=== PATIENT | male | born 1950 | race Caucasian/White ===

== ENCOUNTER 2017-08-18 16:48 | Inpatient (IN) | payer MEDICARE ==
[~2017-08-18] VITALS: Ht 175.3 cm; Wt 93.4 kg
[2017-08-18 17:44] LABS: APPEARANCE,URINE Clear (CLEAR); BILIRUBIN,URINE Negative (NEGATIVE); COLOR,URINE Yellow (YELLOW); GLUCOSE, URINE (UA) Negative (NEGATIVE); KETONES,URINE Negative (NEGATIVE); LEUKOCYTE ESTERASE ,URINE Negative (NEGATIVE); NITRATE,URINE Negative (NEGATIVE); OCCULT BLOOD,URINE Negative (NEGATIVE); PH,URINE 7.5 (5.0-8.0); PROTEIN,URINE Negative (NEGATIVE); UROBILINOGEN,URINE 0.2 mg/dL (0.2-1.0)
[2017-08-18] MEDS ORDERED: MORPHINE SULFATE 4 MG/1ML SYG ONE ×2 (18:46→23:07)
[2017-08-18] MEDS ORDERED: ONDANSETRON HCL 4 MG/2 ML VIAL ONE (18:46)
[2017-08-18 18:59] LABS: BASOPHILS % (AUTO) 0.6 % (0.0-5.0); EOSINOPHILS % (AUTO) 0.3 % (0.0-8.0); MEAN CORPUSCULAR HEMOGLOBIN 37.5 pg (27.0-33.0); MEAN CORPUSCULAR VOLUME 101.4 fL (79-99); MONOCYTES % (AUTO) 5.4 % (3.0-13.0); NEUTROPHILS % (AUTO) 79.7 % (40.0-77.0); PLATELET COUNT (AUTO) 191 K/uL (130-400); RED BLOOD CELL COUNT(AUTO) 4.05 MIL/uL (4.50-6.20); RED CELL DISTRIBUTION WIDTH 13.2 % (11.0-15.5); WHITE BLOOD COUNT (AUTO) 7.2 K/uL (4.8-10.8)
[2017-08-18 19:08] LABS: CREATININE 0.9 mg/dL (0.5-1.5); POTASSIUM 3.6 mmol/L (3.5-5.1)
[2017-08-18 19:13] LABS: ALBUMIN 3.7 g/dL (3.5-5.0); BILIRUBIN,TOTAL 0.5 mg/dL (0.2-1.0); TOTAL PROTEIN, SERUM 7.8 g/dL (6.0-8.3)
[2017-08-18 20:04] LABS: ERYTHROCYTE SEDIMENTATION RATE 17 MM/HR (0-15)
[2017-08-18] MEDS ORDERED: ACETAMINOPHEN 325 MG TAB PO PRN (22:15)
[2017-08-18] MEDS ORDERED: METHYLPREDNISOLONE SOD SUCC 125MG/2ML VIAL IV SCH (22:15)
[2017-08-18] MEDS ORDERED: MORPHINE SULFATE 2 MG/ML 1ML SYG IV PRN (22:15)
[2017-08-18] MEDS ORDERED: ONDANSETRON HCL 4 MG/2 ML VIAL IV PRN (22:15)
[2017-08-18] MEDS ORDERED: HYDRALAZINE HCL 20 MG/ML VIAL IV PRN (22:15)
[2017-08-18 23:41] VITALS: BP 158/73
[2017-08-19] MEDS: SODIUM CHLORIDE 0.9% 1000ML 1,000 ML IV SCH ×2 (01:18→17:37)
[2017-08-19] MEDS ORDERED: MORPHINE SULFATE 4 MG/1ML SYG ONE ×5 (02:36→22:17)
[2017-08-19 04:00] VITALS: BP 159/88
[2017-08-19 07:00] VITALS: BP 171/89
[2017-08-19] MEDS: FAMOTIDINE 20MG TAB 20 MG TAB PO SCH ×2 (10:38→20:15)
[2017-08-19] MEDS: DEXAMETHASONE 4 MG TAB PO SCH (10:38)
[2017-08-19 12:00] VITALS: BP 168/99
[2017-08-19 16:00] VITALS: BP 156/76
[2017-08-19 20:00] VITALS: BP 172/89
[2017-08-19] MEDS ORDERED: TIZA2TAB4 PO (20:00)
[2017-08-19] MEDS ORDERED: TYL3 PO (20:00)
[2017-08-19] MEDS ORDERED: LISI30TA4 PO (20:01)
[2017-08-19] MEDS: ZOLPIDEM TARTRATE 5 MG TAB PO PRN ×2 (21:31→21:46)
[2017-08-19] MEDS ORDERED: HYDR25TA PO (22:49)
[2017-08-19 23:17] VITALS: BP 146/87
[2017-08-20] MEDS ORDERED: MORPHINE SULFATE 4 MG/1ML SYG ONE ×2 (03:54→08:52)
[2017-08-20 04:00] VITALS: BP 157/87
[2017-08-20] MEDS: SODIUM CHLORIDE 0.9% 1000ML 1,000 ML IV SCH (06:05)
[2017-08-20 07:00] VITALS: BP 153/78
[2017-08-20] MEDS: DEXAMETHASONE 4 MG TAB PO SCH (08:42)
[2017-08-20] MEDS: FAMOTIDINE 20MG TAB 20 MG TAB PO SCH (08:47)
[2017-08-20] MEDS ORDERED: ACETAMINOPHEN-CODEINE 300/30MG TAB PO PRN (11:00)
[2017-08-20] MEDS ORDERED: METHYLPREDNISOLONE SOD SUCC 125MG/2ML VIAL IVP SCH (11:00)
[2017-08-20 11:40] VITALS: BP 110/50
[2017-08-20] MEDS ORDERED: FAMO20TA8 PO (14:14)
[2017-08-20] MEDS ORDERED: DEXA4 PO (14:14)
[2017-08-20] MEDS ORDERED: PREG75 PO (14:14)
[2017-08-20] MEDS ORDERED: MORPHINE SULFATE 2 MG/ML 1ML SYG IV PRN (14:15)
[2017-08-20] MEDS ORDERED: PREGABALIN 75 MG CAPSULE PO SCH (21:00)
== END 2017-08-20 15:55 | disposition home or self-care (01) | DRG 552 ==
LOC: EDH 16:48 → EDHIP 19:03 → 3AH 23:42
PROVIDERS: ADMIT Family Medicine; ATTEND Family Medicine
DX: M48.061 Spinal stenosis, lumbar region without neurogenic claudication (principal); I10 Essential (primary) hypertension; M47.26 Other spondylosis with radiculopathy, lumbar region
CPT/HCPCS: 36415; 72148; 80053; 81003; 85025; 85651; J0360; J2270; J2405; J2930; J7030; J8540

== ENCOUNTER → 2021-11-21 | Outpatient (CLI) | payer MEDICARE, OTHER ==
[~2021-11-21] MED LIST: DEXA4 PO; FAMO20TA8 PO; HYDR25TA PO; LISI30TA4 PO; PREG75 PO; TIZA-194 PO; TYL3 PO
== END | disposition home or self-care (01) ==
LOC: RAH 09:36
PROVIDERS: ATTEND Family Medicine
DX: M48.061 Spinal stenosis, lumbar region without neurogenic claudication (principal); M47.816 Spondylosis without myelopathy or radiculopathy, lumbar region; M51.36 Other intervertebral disc degeneration, lumbar region; M51.27 Other intervertebral disc displacement, lumbosacral region
CPT/HCPCS: 72148

== ENCOUNTER 2024-03-11 11:23 | Inpatient (IN) | payer OTHER ==
[~2024-03-11] VITALS: Ht 177.8 cm; Wt 122.4 kg
[2024-03-11 12:51] LABS: BASOPHILS # (AUTO) 0.03 K/uL (0.00-0.20); BASOPHILS % (AUTO) 0.3 % (0.0-5.0); EOSINOPHILS # (AUTO) 0.09 K/uL (0.00-0.70); EOSINOPHILS % (AUTO) 0.9 % (0.0-8.0); HEMATOCRIT 39.2 % (42-54); IMMATURE GRANULOCYTE ABSOLUTE 0.03 K/uL (0-1); LYMPHOCYTES # (AUTO) 1.3 K/uL (1.0-4.8); LYMPHOCYTES % (AUTO) 12.5 % (21.0-51.0); MEAN CORPUSCULAR HEMOGLOBIN 34.8 pg (27.0-33.0); MEAN CORPUSCULAR HGB CONC 33.9 g/dL (32.0-36.0); MEAN CORPUSCULAR VOLUME 102.6 fL (79-99); MONOCYTES # (AUTO) 0.9 K/uL (0.1-1.0); MONOCYTES % (AUTO) 8.4 % (3.0-13.0); NEUTROPHILS # (AUTO) 7.9 K/uL (1.8-7.7); NEUTROPHILS % (AUTO) 77.6 % (40.0-77.0); PLATELET COUNT (AUTO) 169 K/uL (130-400); RED BLOOD CELL COUNT(AUTO) 3.82 MIL/uL (4.50-6.20); RED CELL DISTRIBUTION WIDTH 13.2 % (11.0-15.5); WHITE BLOOD COUNT (AUTO) 10.2 K/uL (4.8-10.8)
[2024-03-11 13:05] LABS: ALBUMIN 3.3 g/dL (3.5-5.0); BILIRUBIN,TOTAL 0.9 mg/dL (0.2-1.0); POTASSIUM 4.1 mmol/L (3.5-5.1); TOTAL PROTEIN, SERUM 6.8 g/dL (6.0-8.3)
[2024-03-11] MEDS: 0.9%NACL 1000ML 1,000 ML IV STA (13:18)
[2024-03-11] MEDS ORDERED: OMEP40CA21 PO (13:38)
[2024-03-11] MEDS ORDERED: SPIR25TA6 PO (13:38)
[2024-03-11] MEDS ORDERED: THIA100T91 PO (13:38)
[2024-03-11] MEDS ORDERED: CARV25TA PO (13:38)
[2024-03-11] MEDS ORDERED: CLOP75TA32 PO (13:38)
[2024-03-11] MEDS ORDERED: OLME20TA68 PO (13:38)
[2024-03-11] MEDS ORDERED: RANO500T6 PO (13:38)
[2024-03-11] MEDS ORDERED: ROSU10CA PO (13:38)
[2024-03-11] MEDS ORDERED: PHARMACY COMMUNICATION MISC SCH (14:30)
[2024-03-11 14:45] LABS: INR 1.01 (0.85-1.15); PROTHROMBIN TIME 10.9 SEC (9.6-11.6)
[2024-03-11 14:46] LABS: PARTIAL THROMBOPLASTIN TIME 25.6 SEC (26.3-35.5)
[2024-03-11] MEDS: 0.9%NACL 1000ML 1,000 ML IV SCH (14:53)
[2024-03-11] MEDS ORDERED: POTASSIUM CHLORIDE 10% ELIXIR 20 MEQ/15 ML UDCUP PO PRN (15:00)
[2024-03-11] MEDS ORDERED: POTASSIUM CHLORIDE 20MEQ/100ML 100 ML IV PRN (15:00)
[2024-03-11] MEDS ORDERED: MAGNESIUM 2GM PREMIX 50ML 50 ML IV PRN (15:00)
[2024-03-11] MEDS ORDERED: acetaMINOPHEN 500 MG TABLET PO PRN (15:00)
[2024-03-11 15:16] LABS: HEMOGLOBIN A1C 5.1 % (4.0-6.0)
[2024-03-11 15:23] LABS: THYROID STIMULATING HORMONE 1.11 uIU/mL (0.36-3.74)
[2024-03-11] MEDS: FIDAXOMICIN 200 MG TABLET PO SCH (16:00)
[2024-03-11 18:00] LABS: APPEARANCE,URINE TURBID (CLEAR); BILIRUBIN,URINE NEGATIVE (NEGATIVE); COLOR,URINE LIGHT-ORANGE (YELLOW); GLUCOSE, URINE (UA) NEGATIVE (NEGATIVE); KETONES,URINE NEGATIVE (NEGATIVE); LEUKOCYTE ESTERASE ,URINE 500 Leu/uL (NEGATIVE); NITRATE,URINE 2+ (NEGATIVE); OCCULT BLOOD,URINE SMALL (NEGATIVE); PROTEIN,URINE 10 mg/dL (NEGATIVE); UROBILINOGEN,URINE 0.2 mg/dL (0.2-1.0)
[2024-03-11 18:04] LABS: ADD UA MICROSCOPIC YES
[2024-03-11 18:09] LABS: BACTERIA,URINE RARE /HPF (None Seen); MUCUS,URINE RARE LPF (None Seen); NON-SQUAMOUS EPITHELIAL CELL 3 /HPF (0-2); SQUAMOUS EPITHELIAL CELL,UR RARE /HPF (0-2); UNCLASSIFIED CRYSTAL 3 /HPF (None Seen); WBC CLUMP MANY /HPF (0-1); WBC,URINE TNTC /HPF (0-1); YEAST,URINE BUDDING FEW /HPF (None Seen)
[2024-03-11] MEDS: carVEDIlol 25 MG TABLET PO SCH (20:59)
[2024-03-11] MEDS: RANOLAZINE 500 MG TAB.SR.12H PO SCH (20:59)
[2024-03-11] MEDS ORDERED: FAMOTIDINE 20MG VIAL IV SCH (21:00)
[2024-03-11 21:20] VITALS: BP 131/82; PULSE 61; RESP 18; TEMP 97.5
[2024-03-11 22:00] VITALS: O2SAT 99
[2024-03-12] VITALS (8 sets, daily range): BP systolic 121–137; BP diastolic 67–76; PULSE 52–65; RESP 18; TEMP 97.6–98.7; O2SAT 99–100
[2024-03-12 06:18] LABS: BASOPHILS # (AUTO) 0.03 K/uL (0.00-0.20); BASOPHILS % (AUTO) 0.4 % (0.0-5.0); EOSINOPHILS # (AUTO) 0.11 K/uL (0.00-0.70); EOSINOPHILS % (AUTO) 1.4 % (0.0-8.0); HEMATOCRIT 35.5 % (42-54); IMMATURE GRANULOCYTE ABSOLUTE 0.03 K/uL (0-1); LYMPHOCYTES # (AUTO) 1.5 K/uL (1.0-4.8); LYMPHOCYTES % (AUTO) 18.6 % (21.0-51.0); MEAN CORPUSCULAR HEMOGLOBIN 34.6 pg (27.0-33.0); MEAN CORPUSCULAR HGB CONC 32.7 g/dL (32.0-36.0); MONOCYTES # (AUTO) 0.9 K/uL (0.1-1.0); MONOCYTES % (AUTO) 10.7 % (3.0-13.0); NEUTROPHILS # (AUTO) 5.5 K/uL (1.8-7.7); NEUTROPHILS % (AUTO) 68.5 % (40.0-77.0); PLATELET COUNT (AUTO) 148 K/uL (130-400); RED BLOOD CELL COUNT(AUTO) 3.35 MIL/uL (4.50-6.20); RED CELL DISTRIBUTION WIDTH 13.3 % (11.0-15.5); WHITE BLOOD COUNT (AUTO) 8.1 K/uL (4.8-10.8)
[2024-03-12] MEDS ORDERED: ROSUVASTATIN CALCIUM 10 MG PO SCH (09:00)
[2024-03-12] MEDS ORDERED: LoSARTan 100 MG TABLET PO SCH (09:00)
[2024-03-12] MEDS: SPIRONOLACTONE 25 MG TAB PO SCH (12:36)
[2024-03-12] MEDS: PANTOPRAZOLE 40 MG TAB DR PO SCH (12:37)
[2024-03-12] MEDS: CLOPIDOGREL 75MG TAB PO SCH (12:38)
[2024-03-12] MEDS: THIAMINE HCL 100 MG TABLET PO SCH (12:39)
[2024-03-12] MEDS: ROSUVASTATIN CALCIUM 10 MG PO SCH (21:00)
[2024-03-13] VITALS: BP 134/74; PULSE 63; RESP 16; TEMP 98.6
[2024-03-13 04:00] VITALS: BP 142/68; PULSE 54; RESP 18; TEMP 98.7
[2024-03-13 05:59] LABS: BASOPHILS # (AUTO) 0.02 K/uL (0.00-0.20); BASOPHILS % (AUTO) 0.3 % (0.0-5.0); EOSINOPHILS # (AUTO) 0.12 K/uL (0.00-0.70); EOSINOPHILS % (AUTO) 1.7 % (0.0-8.0); HEMATOCRIT 34.9 % (42-54); IMMATURE GRANULOCYTE ABSOLUTE 0.03 K/uL (0-1); LYMPHOCYTES # (AUTO) 1.4 K/uL (1.0-4.8); LYMPHOCYTES % (AUTO) 18.9 % (21.0-51.0); MEAN CORPUSCULAR HEMOGLOBIN 34.5 pg (27.0-33.0); MEAN CORPUSCULAR HGB CONC 33.2 g/dL (32.0-36.0); MEAN CORPUSCULAR VOLUME 103.9 fL (79-99); MONOCYTES # (AUTO) 0.7 K/uL (0.1-1.0); MONOCYTES % (AUTO) 9.9 % (3.0-13.0); NEUTROPHILS % (AUTO) 68.8 % (40.0-77.0); PLATELET COUNT (AUTO) 138 K/uL (130-400); RED BLOOD CELL COUNT(AUTO) 3.36 MIL/uL (4.50-6.20); RED CELL DISTRIBUTION WIDTH 13.1 % (11.0-15.5); WHITE BLOOD COUNT (AUTO) 7.2 K/uL (4.8-10.8)
[2024-03-13 06:35] LABS: CREATININE 0.9 mg/dL (0.5-1.3); MAGNESIUM 1.7 mg/dL (1.80-2.40); POTASSIUM 3.6 mmol/L (3.5-5.1)
[2024-03-13 08:32] VITALS: BP 135/65; PULSE 52; RESP 18; TEMP 99
[2024-03-13] MEDS: LoSARTan 50 MG TABLET PO SCH (09:00)
[2024-03-13 11:29] VITALS: BP 152/55; PULSE 56; RESP 18; TEMP 98.2
[2024-03-13 16:37] VITALS: BP 137/72; PULSE 58; RESP 18; TEMP 98.5
[2024-03-13] MEDS: KCL 20 MEQ ERTAB PO PRN (17:29)
[2024-03-13 20:00] VITALS: BP 147/88; PULSE 50; RESP 21; TEMP 98.4
[2024-03-14] VITALS (8 sets, daily range): BP systolic 123–153; BP diastolic 57–80; PULSE 18–60; RESP 16–19; TEMP 97.5–98.4; O2SAT 97–99
[2024-03-14 04:35] LABS: BASOPHILS # (AUTO) 0.02 K/uL (0.00-0.20); BASOPHILS % (AUTO) 0.3 % (0.0-5.0); EOSINOPHILS # (AUTO) 0.14 K/uL (0.00-0.70); EOSINOPHILS % (AUTO) 2.3 % (0.0-8.0); HEMATOCRIT 33.4 % (42-54); IMMATURE GRANULOCYTE ABSOLUTE 0.02 K/uL (0-1); LYMPHOCYTES # (AUTO) 1.7 K/uL (1.0-4.8); LYMPHOCYTES % (AUTO) 28.8 % (21.0-51.0); MEAN CORPUSCULAR HEMOGLOBIN 34.4 pg (27.0-33.0); MEAN CORPUSCULAR HGB CONC 33.5 g/dL (32.0-36.0); MEAN CORPUSCULAR VOLUME 102.5 fL (79-99); MONOCYTES # (AUTO) 0.7 K/uL (0.1-1.0); MONOCYTES % (AUTO) 11.1 % (3.0-13.0); NEUTROPHILS # (AUTO) 3.4 K/uL (1.8-7.7); NEUTROPHILS % (AUTO) 57.2 % (40.0-77.0); PLATELET COUNT (AUTO) 128 K/uL (130-400); RED BLOOD CELL COUNT(AUTO) 3.26 MIL/uL (4.50-6.20); RED CELL DISTRIBUTION WIDTH 12.9 % (11.0-15.5)
[2024-03-14 04:40] LABS: CREATININE 0.9 mg/dL (0.5-1.3)
[2024-03-15] VITALS: BP 139/66; PULSE 54; RESP 17; TEMP 98.1
[2024-03-15 05:59] LABS: BASOPHILS # (AUTO) 0.02 K/uL (0.00-0.20); BASOPHILS % (AUTO) 0.3 % (0.0-5.0); EOSINOPHILS # (AUTO) 0.12 K/uL (0.00-0.70); HEMATOCRIT 33.2 % (42-54); IMMATURE GRANULOCYTE ABSOLUTE 0.03 K/uL (0-1); LYMPHOCYTES # (AUTO) 1.6 K/uL (1.0-4.8); LYMPHOCYTES % (AUTO) 26.6 % (21.0-51.0); MEAN CORPUSCULAR HEMOGLOBIN 33.8 pg (27.0-33.0); MEAN CORPUSCULAR HGB CONC 33.1 g/dL (32.0-36.0); MEAN CORPUSCULAR VOLUME 102.2 fL (79-99); MONOCYTES # (AUTO) 0.6 K/uL (0.1-1.0); MONOCYTES % (AUTO) 10.7 % (3.0-13.0); NEUTROPHILS # (AUTO) 3.5 K/uL (1.8-7.7); NEUTROPHILS % (AUTO) 59.9 % (40.0-77.0); PLATELET COUNT (AUTO) 134 K/uL (130-400); RED BLOOD CELL COUNT(AUTO) 3.25 MIL/uL (4.50-6.20); RED CELL DISTRIBUTION WIDTH 12.8 % (11.0-15.5); WHITE BLOOD COUNT (AUTO) 5.9 K/uL (4.8-10.8)
[2024-03-15 06:07] LABS: CREATININE 0.9 mg/dL (0.5-1.3); POTASSIUM 3.6 mmol/L (3.5-5.1)
[2024-03-15 08:00] VITALS: BP 145/75; PULSE 50; RESP 20; TEMP 97.8
[2024-03-15 09:45] VITALS: O2SAT 97
[2024-03-15 12:00] VITALS: BP 132/79; PULSE 49; RESP 18; TEMP 97.3
[2024-03-15] MEDS: FIDAXOMICIN 200 MG TABLET PO ONE (12:02)
[2024-03-15] MEDS ORDERED: FIDAXOMICIN 200 MG TABLET PO SCH (22:00)
== END 2024-03-15 16:55 | disposition home or self-care (01) | DRG 372 ==
LOC: EDH 11:23 → EDHIP 14:29 → 3AH 21:20
PROVIDERS: ADMIT Internal Medicine; ATTEND Internal Medicine
PROC: 5A09357 Assistance with Respiratory Ventilation, Less than 24 Consecutive Hours, Continuous Positive Airway Pressure (ICD-10-PCS; principal; 2024-03-11)
PROC: 5A09357 Assistance with Respiratory Ventilation, Less than 24 Consecutive Hours, Continuous Positive Airway Pressure (ICD-10-PCS; 2024-03-11)
DX: A04.72 Enterocolitis due to Clostridium difficile, not specified as recurrent (principal); N39.0 Urinary tract infection, site not specified; D53.9 Nutritional anemia, unspecified; E66.9 Obesity, unspecified; B96.1 Klebsiella pneumoniae [K. pneumoniae] as the cause of diseases classified elsewhere; E78.5 Hyperlipidemia, unspecified; I10 Essential (primary) hypertension; Z68.39 Body mass index [BMI] 39.0-39.9, adult; Z79.899 Other long term (current) drug therapy
CPT/HCPCS: 36415; 71045; 74176; 80048; 80053; 81001; 82270; 83036; 83605; 83735; 84100; 84145; 84443; 85025; 85610; 85730; 86140; 87040; 87046; 87086; 87186; 87324; 93005; 96360; 96361; G0378